=== PATIENT | female | born 1995 | race African-American/Black ===

== ENCOUNTER 2024-11-16 19:28 | Emergency (ER) | payer OTHER ==
[2024-11-16] MEDS ORDERED: Amoxicillin/Potassium Clav 875 MG TAB ONE (20:05)
[2024-11-16] MEDS ORDERED: Ketorolac Tromethamine 30 MG (1 mL) VIAL ONE (20:06)
== END 2024-11-16 20:16 | disposition home or self-care (01) ==
LOC: ERS 19:28
DX: L03.011 Cellulitis of right finger (principal)
CPT/HCPCS: 96372; 99282; J1885